=== PATIENT | male | born 1950 | race Caucasian/White ===

== ENCOUNTER 2019-07-17 13:20 | Outpatient (CLI) | payer OTHER, MEDICARE, SELFPAY ==
[2019-07-17 14:04] LABS: Blood Urea Nitrogen 26 mg/dL (9-20); Calcium 9.8 mg/dL (8.4-10.2); Carbon Dioxide 24 mmol/L (22-30); Chloride 94 mmol/L (98-107); Estimated Glomerular Filt Rate > 60; Glucose 200 mg/dL (75-110); Potassium 4.5 mmol/L (3.4-5.0); Sodium 136 mmol/L (137-145)
== END 2019-07-17 13:21 | disposition home or self-care (01) ==
PROVIDERS: Anesthesiology; PCP Family Medicine; Visit Provider Orthopaedic Surgery
DX: E11.9 Type 2 diabetes mellitus without complications (principal)
CPT/HCPCS: 36415; 80048

== ENCOUNTER 2019-07-21 01:30 | Day surgery (SDC) | payer OTHER, MEDICARE, SELFPAY ==
[2019-07-17 10:05] VITALS: BMI 35.6
[2019-07-21] VITALS (7 sets, daily range): BP systolic 111–131; BP diastolic 76–86; PULSE 80–84; RESP 10–20; TEMP 36.5–36.6; O2SAT 93–96
--- NOTE | ~2019-07-21 | XR_ITS ---
EXAMINATION: XR surgery orthopedic DATE: 07/21/2019 10:35 INDICATION: Right foot orthopedic instrumentation removal. TECHNIQUE: 4 fluoroscopic spot images of the right forefoot were obtained during procedure performed by Dr. Hylton. Radiologist was not present for the imaging or procedure. The amount of fluoroscopy t janessa used during this procedure was 0.6 minutes. COMPARISON: Right foot radiographs dated 07/15/2019 FINDINGS: First metatarsophalangeal arthrodesis with unchanged dorsal plate-screw and crossed cannulated compre ssion screw fixation. Interval revision of the prior failed second proximal interphalangeal joint art hrodesis with removal of the previous fixation screw and placement of a new threaded fixation device placed over an axially directed K wire which extends from the tuft of the distal phalanx across the l ength of the second toe to the head of the second metatarsal. There is a second K wire extending from the tuft to the medial base of the proximal phalanx. The second proximal interphalangeal joint arthr odesis is now in near-anatomic alignment. Alignment of the great toe remains in unchanged near-anatom ic alignment. No acute fracture. Remaining joint spaces appear relatively preserved. IMPRESSION: 1. Fluoroscopy utilized during revision of a previously failed instrumented second proximal interphal angeal joint arthrodesis. Reviewed, dictated and finalized at location A. RAM SUPPORT ASSISTANT IMPRESSION: 1. Fluoroscopy utilized during revision of a previously failed instrumented sec ond proximal interphalangeal joint arthrodesis.
--- NOTE | 2019-07-21 07:26 | WPDHPUPDATE1 ---
History and Physical Update Update Date/Time: 07/21/19 07:26 History and Physical has been reviewed, including an updated exam of the patient. There are NO changes in the patient's condition. Risks, benefits, and alternatives have been discussed and questions answered. Patient agrees to proceed with procedure.
[2019-07-21] MEDS: LACTATED RINGERS 1,000 ML 30 ML IV CONT (07:51)
[2019-07-21] MEDS: IBUPROFEN IV 800 MG/200 ML 800 MG/200 ML BAG 400 MG IVPB (08:15)
[2019-07-21 08:23] LABS: Glucose Point of Care 146 (65-105)
--- NOTE | 2019-07-21 08:27 | WPDANESEPPF ---
Anes - Initial Pre Proc Eval Procedure: Operation Date: 07/21/19 09:30 Proposed Procedures p Right Foot Second Proximal Interphalangeal Arthrodesis - Vic Hylton MD s Removal Of Hardware Right Foot Second Toe - Vic Hylton MD Date/Time: 07/21/19 08:27 Surgeon: Vic Hylton MD Pre Op Diagnosis: Right Second Toe Nonunion, Hardware Failure Patient Data Age: 68 Gender: M Height: 1.96 m Weight: 136.1 kg Allergies Allergy/AdvReac Type Severity Reaction Status Date / Time No Known Allergies Allergy Verified 07/17/19 09:40 Home Medications Medication Instructions Recorded Confirmed Type clindamycin phosphate 1 % lotion 1 applic TOPICAL DAILY #60 ml 04/16/19 07/17/19 Rx empagliflozin 25 mg tablet 25 mg PO DAILY 04/22/19 07/17/19 History metformin 500 mg tablet 1,000 mg PO BID 04/22/19 07/17/19 History trazodone 100 mg tablet 100 mg PO HS 04/22/19 07/17/19 History aspirin 81 mg tablet,delayed 81 mg PO DAILY 05/14/19 07/17/19 History release cholecalciferol (vitamin D3) 125 5,000 unit PO DAILY 05/14/19 07/17/19 History mcg (5,000 unit) tablet clotrimazole 1 % topical cream 1 applic TOPICAL Q12H #14 gm 05/14/19 07/17/19 Rx lisinopril 10 1 tablet PO BID 05/14/19 07/17/19 History mg-hydrochlorothiazide 12.5 mg tablet magnesium 200 mg tablet 200 mg PO DAILY 05/14/19 07/17/19 History potassium 99 mg tablet mg PO 05/14/19 07/15/19 History tamsulosin 0.4 mg capsule 0.4 mg PO DAILY 05/14/19 07/17/19 History teriparatide 20 mcg/dose (600 20 mcg SUB-Q DAILY 05/14/19 07/17/19 History mcg/2.4 mL) subcutaneous pen injector testosterone 20.25 mg/1.25 gram 2 pump TOPICAL DAILY 05/14/19 07/17/19 History (1.62 %) transdermal gel pump vitamin B12 1,000 mcg-folic acid lozenge SUBLINGUAL 05/14/19 07/15/19 History 400 mcg sublingual lozenge betamethasone dipropionate 0.05 % 1 applic TOPICAL BID #45 gm 06/05/19 07/17/19 Rx topical ointment apremilast [Otezla] 30 mg PO BID 07/17/19 07/17/19 History Laboratory Tests 07/21/19 08:21 POC Capillary Glucose 146 mg/dl H mg/dl (65-105) Patient hx anesthesia problems: none Family hx anesthesia problems: none PMFSH Past Medical History Medical History (Updated 07/15/19 @ 15:30 by Vic Hylton MD) Diabetes DVT (deep venous thrombosis) Epidermoid cyst of skin (2007) Failed hardware HTN (hypertension) Nonunion of arthrodesis Obesity Surgical History Surgical History H/O cataract extraction Hx of tonsillectomy (1961) S/P lumbar spinal arthrodesis (2009) S/P orthopedic surgery, follow-up exam Social History Social History Smoking status: Former smoker Smoking end date: 06/11/77 Alcohol intake: current Substance use: unknown Gender identity (if verbalized by the patient): Male Spiritual care concerns: No Anes - Eval Final PreProcedure Day of Procedure 07/21/19 08:27 Patient weight: obese Heart: regular rate and rhythm Lungs: clear to auscultation and normal air movement Airway: Mallampati scale class II Neurological: alert and oriented Last oral intake: >/= 8 hours ASA classification: III Emergent: no Anesthetic plan: proceed Anesthesia type and monitoring: general LMA and standard monitoring Informed Consent: The patient's anesthetic plan and its attendant risks and benefits were discussed with the patient/family/POA. Questions were solicited and answers provided to the satisfaction of the patient/family/POA.
--- NOTE | 2019-07-21 08:40 | SUR.PREOP ---
PT KNOWLEDGEABLE RE: CRUTCH AND IT USE RE: RECENT FOOT/ANKLE SURGERY AND TEACHING DONE HERE PER PT.
[2019-07-21] MEDS: ceFAZolin 3 GM/D5W 100 ML 100 ML IVPB (09:35)
[2019-07-21 10:47] LABS: Glucose Point of Care 164 (65-105)
--- NOTE | 2019-07-21 10:55 | P.OP_ITS ---
Procedure Note - Detailed Date of procedure: 07/21/19 Pre-op diagnosis: Right Second Toe Nonunion, Hardware Failure Post-op diagnosis: same Procedure performed: Right hallux proximal interphalangeal joint revision arthrodesis, removal of hardware Description of procedure: Indications: Patient is a 68-year-old gentleman with diabetes and psoriatic arthritis who underwent right 2nd toe proximal interphalangeal joint arthrodesis for hammertoe correction 2 months ago. Surgery was fixed with implant and K-wires. K-wires were removed at 6 weeks. Patient was noted to have loss of fixation, deformity and nonunion on radiographs. Patient presents now for operative treatment as his toe is in unacceptable alignment, hardware is creating pressure on the skin and as a risk for ulceration. What was done: Patient identified in the preoperative holding. Informed consent given. Operative extremity marked. Patient received intravenous antibiotics. Patient brought to the operating room where underwent general anesthetic by anesthesia team. Positioned supine on operating room table. Time-out performed confirming the patient, site of the surgery and the plan. Right foot prepped and draped in usual sterile surgical fashion using ChloraPrep skin solution. Foot and ankle exsanguinated and a calf tourniquet inflated to 220 mmHg. Previous dorsal longitudinal incision over the 2nd toe proximal interphalangeal joint utilized with 15 blade knife. Hemostasis controlled electrocautery. Extensor capsulotomy performed in line with skin incision and the soft tissue elevated off the medial and lateral aspect of the interphalangeal joint arthrodesis. Nonunion noted with instability of the arthrodesis site. Callus and soft tissue from the arthrodesis site removed with a rongeur. Previous hammertoe implant identified and removed with a clamp. The proximal phalanx and middle phalanx bone insert prepared with rongeur and curette. Thorough irrigation with antibiotic solution. Interphalangeal joint arthrodesis then secured with the 3.0 mm Arthrex implant. This was inserted into the proximal phalanx 1st followed by the middle phalanx with good compression noted. Supplemental fixation with 0.045 in K-wire done x3. Image intensification confirmed reduction of the arthrodesis and alignment of the internal fixation. Wound thoroughly irrigated with antibiotic solution, soft tissue closed with 3 0 Monocryl interrupted suture and skin repaired with 4 nylon interrupted suture. Due to the chronic deformity the toenail was then removed with a [place] elevator and a clamp. Who tourniquet released in good capillary refill noted in the toe. Sterile dressing applied. Patient awoke from anesthesia, extubated and taken to recovery room in stable condition. All sponge, needle, instrument counts correct in the case. Implants: Arthrex 3.0 mm hammertoe fusion implant, 0.045 in K-wire x3 Anesthesia: GLMA Surgeon: Vic Hylton MD Content Coordinator: 1st bilingual executive assistant Estimated blood loss (mL): 5 Tourniquet time (min): 45 Drains: No Packing: No Pathology: none sent Complications: None Condition: stable Disposition: PACU
--- NOTE | 2019-07-21 11:58 | SUR.PHASEII ---
1155; POST OP SHOE APPLIED
--- NOTE | 2019-07-21 12:08 | SUR.PHASEII ---
1210; SPOKE TO DR BALDWIN REGARDING MODERATE AMOUNT BLEEDING. ORDER TO REINFORCE DRESSING. ICE PACK ON 20MIN, OFF 20 MIN,
--- NOTE | 2019-07-21 12:25 | SUR.PHASEII ---
1220; PT ASKING TO GO HOME. MEETS DISCHARGE CRITERIA
--- NOTE | 2019-07-21 12:35 | SUR.PHASEII ---
1220; DR BALDWIN HERE TO SEE PT.
== END 2019-07-21 12:33 | disposition home or self-care (01) ==
PROVIDERS: PCP Family Medicine; Visit Provider Orthopaedic Surgery
PROC: (CPT 28750; principal; 2019-07-21 09:30)
PROC: (CPT 28285; 2019-07-21 09:30)
DX: M96.0 Pseudarthrosis after fusion or arthrodesis (principal); T84.098A Other mechanical complication of other internal joint prosthesis, initial encounter; Z96.698 Presence of other orthopedic joint implants; L40.59 Other psoriatic arthropathy; E11.9 Type 2 diabetes mellitus without complications; I10 Essential (primary) hypertension; Z79.84 Long term (current) use of oral hypoglycemic drugs; Z86.718 Personal history of other venous thrombosis and embolism; Z87.891 Personal history of nicotine dependence
CPT/HCPCS: 28285; 20680; J0690; J1741; J2250; J2405; J2704; J3010; J7120

== ENCOUNTER 2021-05-10 01:56 | Day surgery (SDC) | payer OTHER, MEDICARE, SELFPAY ==
[2021-04-21 15:15] VITALS: BMI 33.8
--- NOTE | 2021-05-09 13:20 | PM.HPGS ---
History of Present Illness History of Present Illness Consent: Risks, benefits, and alternatives have been discussed and questions answered. Patient agrees to proceed with procedure. Chief complaint: neoplasm screening Narrative: Marino Andrade Jr. is a 70 year old male who was referred for colon cancer screening. His last colonoscopy was 10 years ago Review of Systems Review of Systems: All systems reviewed & are unremarkable except as noted in HPI and below PMFSH Past Medical History Medical History (Updated 05/09/21 @ 13:21 by Shashi Conner MD) Diabetes DVT (deep venous thrombosis) Epidermoid cyst of skin (2007) groin Failed hardware Hallux valgus of right foot Hepatitis C antibody test negative (~10/07/16) HTN (hypertension) Nonunion of arthrodesis Obesity Obesity (BMI 30-39.9) Other hammer toe(s) (acquired), right foot Psoriasis Type 2 diabetes mellitus with chronic kidney disease, without long-term current use of insulin Type 2 diabetes mellitus with diabetic neuropathy, without long-term current use of insulin Ulcer of toe of left foot Surgical History Surgical History H/O cataract extraction History of foot surgery (~03/20/19) left hallux metatarsophalangeal arthrodesis Hx of tonsillectomy (1961) S/P lumbar spinal arthrodesis (2009) Family History Family History Other Diabetes mellitus Hypertension Social History Social History Smoking status: Former smoker Tobacco type: cigarettes Smoking end date: 06/11/77 Alcohol intake: current Substance use: never Living arrangements: with family Gender identity (if verbalized by the patient): Male Spiritual care concerns: No Meds Home Medications and Allergies Home Medications Medication Instructions Recorded Confirmed Type aspirin 81 mg tablet,delayed 81 mg PO DAILY 05/14/19 04/21/21 History release cholecalciferol (vitamin D3) 125 5,000 unit PO DAILY 05/14/19 04/21/21 History mcg (5,000 unit) tablet magnesium 200 mg tablet 200 mg PO DAILY 05/14/19 04/21/21 History potassium 99 mg tablet 99 mg PO 05/14/19 03/09/21 History hydroxyzine HCl 25 mg tablet 25 mg PO BID PRN 02/12/20 04/21/21 History meloxicam 15 mg tablet 15 mg PO DAILY 02/12/20 04/21/21 History clobetasol 0.05 % topical cream 1 applic TOPICAL BID 06/16/20 04/21/21 History ketoconazole 2 % topical cream 1 applic TOPICAL DAILY PRN 06/16/20 04/21/21 History empagliflozin 25 mg tablet 25 mg PO DAILY #90 tablet 10/07/20 04/21/21 Rx metformin 500 mg tablet 1,000 mg PO BID #360 tablet 11/01/20 04/21/21 Rx lisinopril 10 1 tablet PO BID #180 tablet 11/29/20 04/21/21 Rx mg-hydrochlorothiazide 12.5 mg tablet trazodone 100 mg tablet 50 mg PO BID #90 tablet 02/17/21 04/21/21 Rx folic acid 1 mg tablet 1 mg PO DAILY tablet 03/09/21 04/21/21 History risankizumab-rzaa 150 mg/mL 150 mg SUBCUT ONCE 03/09/21 04/21/21 History subcutaneous pen injector semaglutide 1 mg/dose (2 mg/1.5 1 mg SUBCUT WEEKLY #9 ml 03/09/21 04/21/21 Rx mL) subcutaneous pen injector valacyclovir 1 gram tablet 1,000 mg PO DAILY 03/09/21 04/21/21 History betamethasone dipropionate 1 applic TOPICAL BID PRN 04/21/21 04/21/21 History clindamycin phosphate 1 applic TOPICAL DAILY PRN 04/21/21 04/21/21 History tamsulosin 0.4 mg capsule See Rx Instructions .ROUTE 04/21/21 Rx .COMPLEX #90 cap Allergies Allergy/AdvReac Type Severity Reaction Status Date / Time No Known Allergies Allergy Verified 05/10/21 10:40 Exam Const: Nutritional Appearance: obese Resp: Auscultation: clear to auscultation bilaterally Cardio: Rate: regular rate Assessment and Plan Assessment and plan (1) Colon cancer screening: Code(s): Z12.11 - Encounter for screening for malignant neoplasm of colon Status: Acute Assessment and P
[2021-05-10 10:11] VITALS: BP 120/75; PULSE 94; RESP 18; TEMP 36.1; O2SAT 95; BMI 33.4
[2021-05-10 10:27] LABS: Glucose Point of Care 106 mg/dl (65-105)
[2021-05-10 10:27] LABS: Glucose Point of Care 97 mg/dl (65-105)
[2021-05-10] MEDS: LACTATED RINGERS 1,000 ML 150 ML IV CONT (10:27)
--- NOTE | 2021-05-10 10:28 | SUR.PREOP ---
BLOOD SUGAR CHECKED AT 1025 RESULTS WERE 106 IN RIGHT FINGER, RECHECKED BLOOD SUGAR IN LEFT FINGER RESULTS WERE 97. PATIENT STATES HE TOOK HIS METFORMIN LAST EVENING. HE IS FEELING OK NO COMPLAINTS OF DIZZINESS OR LIGHT HEADEDNESS. SKIN WARM AND DRY. RELAYED INFORMATION TO DR HARRISON NO ORDERS RECEIVED AT THIS TIME. RELAYED INFORMATION TO PATIENT AFTER TALKING WITH DR. HARRISON.
--- NOTE | 2021-05-10 10:47 | WPDANESEPPF ---
Anes - Initial Pre Proc Eval Procedure: Operation Date: 05/10/21 11:15 Proposed Procedures p Screening Colonoscopy - Shashi Conner MD Date/Time: 05/10/21 10:47 Surgeon: Shashi Conner MD Pre Op Diagnosis: neoplasm screening Patient Data Age: 70 Gender: M Height: 1.96 m Weight: 127.9 kg Last Vital Signs Temp 96.9 F L 05/10/21 10:11 Pulse 94 05/10/21 10:11 Resp 18 05/10/21 10:11 BP 120/75 05/10/21 10:11 Pulse Ox 95 05/10/21 10:11 Allergies Allergy/AdvReac Type Severity Reaction Status Date / Time No Known Allergies Allergy Verified 05/10/21 10:40 Home Medications Medication Instructions Recorded Confirmed Type aspirin 81 mg tablet,delayed 81 mg PO DAILY 05/14/19 04/21/21 History release cholecalciferol (vitamin D3) 125 5,000 unit PO DAILY 05/14/19 04/21/21 History mcg (5,000 unit) tablet magnesium 200 mg tablet 200 mg PO DAILY 05/14/19 04/21/21 History potassium 99 mg tablet 99 mg PO 05/14/19 03/09/21 History hydroxyzine HCl 25 mg tablet 25 mg PO BID PRN 02/12/20 04/21/21 History meloxicam 15 mg tablet 15 mg PO DAILY 02/12/20 04/21/21 History clobetasol 0.05 % topical cream 1 applic TOPICAL BID 06/16/20 04/21/21 History ketoconazole 2 % topical cream 1 applic TOPICAL DAILY PRN 06/16/20 04/21/21 History empagliflozin 25 mg tablet 25 mg PO DAILY #90 tablet 10/07/20 04/21/21 Rx metformin 500 mg tablet 1,000 mg PO BID #360 tablet 11/01/20 04/21/21 Rx lisinopril 10 1 tablet PO BID #180 tablet 11/29/20 04/21/21 Rx mg-hydrochlorothiazide 12.5 mg tablet trazodone 100 mg tablet 50 mg PO BID #90 tablet 02/17/21 04/21/21 Rx folic acid 1 mg tablet 1 mg PO DAILY tablet 03/09/21 04/21/21 History risankizumab-rzaa 150 mg/mL 150 mg SUBCUT ONCE 03/09/21 04/21/21 History subcutaneous pen injector semaglutide 1 mg/dose (2 mg/1.5 1 mg SUBCUT WEEKLY #9 ml 03/09/21 04/21/21 Rx mL) subcutaneous pen injector valacyclovir 1 gram tablet 1,000 mg PO DAILY 03/09/21 04/21/21 History betamethasone dipropionate 1 applic TOPICAL BID PRN 04/21/21 04/21/21 History clindamycin phosphate 1 applic TOPICAL DAILY PRN 04/21/21 04/21/21 History tamsulosin 0.4 mg capsule See Rx Instructions .ROUTE 04/21/21 Rx .COMPLEX #90 cap Laboratory Tests 05/10/21 05/10/21 10:22 10:24 POC Capillary Glucose 106 mg/dl H mg/dl 97 mg/dl mg/dl (65-105) (65-105) Patient hx anesthesia problems: none Family hx anesthesia problems: none Results Review: All pre-operative results and documents have been reviewed as part of the pre-operative evaluation. [facility] Past Medical History Medical History (Updated 05/09/21 @ 13:21 by Shashi Conner MD) Diabetes DVT (deep venous thrombosis) Epidermoid cyst of skin (2007) groin Failed hardware Hallux valgus of right foot Hepatitis C antibody test negative (~10/07/16) HTN (hypertension) Nonunion of arthrodesis Obesity Obesity (BMI 30-39.9) Other hammer toe(s) (acquired), right foot Psoriasis Type 2 diabetes mellitus with chronic kidney disease, without long-term current use of insulin Type 2 diabetes mellitus with diabetic neuropathy, without long-term current use of insulin Ulcer of toe of left foot Surgical History Surgical History H/O cataract extraction History of foot surgery (~03/20/19) left hallux metatarsophalangeal arthrodesis Hx of tonsillectomy (1961) S/P lumbar spinal arthrodesis (2009) Family History Family History Other Diabetes mellitus Hypertension Social History Social History Smoking status: Former smoker Tobacco type: cigarettes Smoking end date: 06/11/77 Alcohol intake: current Substance use: never Living arrangements: with family Gender identity (if verbalized by the patient): Male Spiritual care concerns: No Anes - Eval
[2021-05-10 11:41] VITALS: BP 89/54; PULSE 90; RESP 17; O2SAT 94
[2021-05-10 11:51] VITALS: BP 94/60; PULSE 88; RESP 17; O2SAT 95
[2021-05-10 12:01] VITALS: BP 107/67; PULSE 84; RESP 17; O2SAT 94
== END 2021-05-10 12:30 | disposition home or self-care (01) ==
PROVIDERS: PCP Family Medicine; Visit Provider Internal Medicine Gastroenterology
PROC: 0DJD8ZZ Inspection of Lower Intestinal Tract, Via Natural or Artificial Opening Endoscopic (ICD-10-PCS; CPT 45378; principal; 2021-05-10 11:15)
DX: Z12.11 Encounter for screening for malignant neoplasm of colon (principal); D12.2 Benign neoplasm of ascending colon; D12.8 Benign neoplasm of rectum; K57.30 Diverticulosis of large intestine without perforation or abscess without bleeding; I12.9 Hypertensive chronic kidney disease with stage 1 through stage 4 chronic kidney disease, or unspecified chronic kidney disease; E11.40 Type 2 diabetes mellitus with diabetic neuropathy, unspecified; E11.22 Type 2 diabetes mellitus with diabetic chronic kidney disease; N18.9 Chronic kidney disease, unspecified; L40.9 Psoriasis, unspecified; Z79.82 Long term (current) use of aspirin; Z79.84 Long term (current) use of oral hypoglycemic drugs; Z79.899 Other long term (current) drug therapy; E66.9 Obesity, unspecified; Z68.33 Body mass index [BMI] 33.0-33.9, adult; Z86.718 Personal history of other venous thrombosis and embolism; Z87.891 Personal history of nicotine dependence
CPT/HCPCS: 45380; 45385; 45381; 82948; 88305; J2704; J7120

== ENCOUNTER → 2021-05-25 11:15 | Outpatient (CLI) | payer OTHER, MEDICARE, SELFPAY ==
--- NOTE | ~2021-05-25 | DEXA_ITS ---
Bone Density Report Name: KOBE GAUTHIER Age: 70 Sex: Male Ethnicity: White Date of : 1950 Indication: height loss; prior fracture; Referring Provider: MIGUEL OWENS Study: Bone densitometry was performed. Exam Date: May 25, 2021 Accession number: [id number] Bone Density: Region BMD T-score Z-score Classification AP Spine (L1, L2, L3) 0.901 -1.5 -0.7 Osteopenia Femoral Neck (Left) 0.680 -1.8 -0.7 Osteopenia Total Hip (Left) 0.886 -1.0 -0.4 Normal Femoral Neck (Right) 0.708 -1.6 -0.5 Osteopenia Total Hip (Right) 0.905 -0.8 -0.2 Normal Total Hip Mean 0.895 -0.9 -0.3 Normal World Health Organization criteria for BMD impression classify patients as: Normal (T-score at or above -1.0), Osteopenia (T-score between -1.0 and -2.5), or Osteoporosis (T-score at or below -2.5). 10-year Fracture Risk: FRAX not reported because: Prior hip or vertebral fracture Clinical Information Provided by Patient: Have had a previous hip or vertebral fracture Has had a low trauma fracture Has used the following medications: Vitamin D, Calcium, MTV Patient maximum height was 76.75 No regular weight bearing exercise Does not regularly consume dairy products Drinks caffeinated beverages Impression: The patient has low bone mass, based on the Left Femoral Neck T-score. The patient has risk factors, including: previous fracture. Discussion: INCREASED RISK OF FRACTURE DUE TO HISTORY OF LOW TRAUMA FRACTURE. The patient's previous fracture puts the patient at high risk of a future fracture. In untreated patients, the risk of osteoporotic fracture increases approximately two-fold for each 1.0 SD decrease in T-score. Low bone density is not the only risk factor for fracture; also consider factors such as patient's age, frailty or poor health, risk of falling, risk of injury, previous osteoporotic fracture, family history of osteoporosis, cigarette smoking, low body weight, etc. Not everyone with a low trauma fracture has osteoporosis; osteomalacia and other metabolic bone disorders should also be considered. Patients who have osteoporosis should be evaluated for specific diseases and conditions (secondary causes) that may cause or contribute to bone loss and fracture risk. National Osteoporosis Foundation (NOF) recommends pharmacologic intervention for patients with a prior low trauma hip or vertebral fracture regardless of BMD T-score. The patient should follow a healthful lifestyle (good nutrition with adequate calcium and vitamin D, and appropriate weight-bearing exercise). Follow-Up: Consider a repeat BMD and Vertebral Fracture Assessment (VFA) exam in 2 years or sooner if medically necessary, to reassess this patient's status. Reported by: LUISITO on 05/25/2021 1:17:00 PM.
--- NOTE | ~2021-05-25 | XR_ITS ---
XR finger 1st LT min 2V 05/25/2021 12:08 Indication: Left first finger pain Procedure: 3 views left first finger Comparison: No prior studies for comparison. Findings: There is moderate osteoarthritis of the first carpometacarpal, MCP and IP joints. No fractu re or traumatic malalignment. Osteopenia. No focal soft tissue abnormality. There is mild degenerativ e change of the triscaphe joint. No foreign bodies. 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 Reviewed, dictated and finalized at location A. 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
== END ==
PROVIDERS: PCP Family Medicine; Visit Provider Physician Assistant
DX: M18.12 Unilateral primary osteoarthritis of first carpometacarpal joint, left hand (principal); M19.042 Primary osteoarthritis, left hand; M85.852 Other specified disorders of bone density and structure, left thigh; M85.851 Other specified disorders of bone density and structure, right thigh
CPT/HCPCS: 73140; 77080

== ENCOUNTER 2023-04-12 12:56 | Outpatient (CLI) | payer OTHER, MEDICARE, SELFPAY ==
--- NOTE | ~2023-04-12 | MR_ITS ---
EXAMINATION: MR lumbar spine wo con DATE: 04/12/2023 13:34 INDICATION: Chronic low back pain. TECHNIQUE: Magnetic resonance imaging (MRI) of the lumbar spine was performed without intravenous con trast. COMPARISON: Lumbar spine MRI 12/28/2014 FINDINGS: There is 14 degrees levoscoliosis of lumbar spine. There is mild chronic anterior wedging o f T12-L3 vertebral bodies. There is 8 mm anterolisthesis of L5 on S1. There are changes of anterior a nd posterior fusion procedures at L5-S1 with interbody devices and pedicle screws. There is 3 mm retr olisthesis of L1 on L2 and L2 on L3. There is mildly decreased disc height at L1-L2, moderately decre ased disc height at L2-L3, and mildly decreased disc height at L4-L5. The distal spinal cord signal i ntensity is normal. The conus medullaris is at L1. The following disc levels are specifically discuss ed: L1-L2: The disc is bulging. There is mild bilateral facet joint osteoarthritis. There is mild bilater al neural foraminal stenosis. There is mild central canal stenosis. L2-L3: The disc is bulging. There is severe bilateral facet joint osteoarthritis. There is moderate r ight and mild left neural foraminal stenosis. There is mild central canal stenosis. L3-L4: The disc is bulging. There is severe bilateral facet joint osteoarthritis. There is moderate b ilateral neural foraminal stenosis. There is mild central canal stenosis. L4-L5: The disc is bulging and has an annular fissure. There is severe bilateral facet joint osteoart hritis. There is moderate bilateral neural foraminal stenosis. There is mild central canal stenosis. L5-S1: There is severe bilateral facet joint hypertrophy. There is moderate right and mild left neura l foraminal stenosis. There is no central canal stenosis. IMPRESSION: 1. Moderate lumbar spondylosis, stable from 12/28/2014. 2. Anterior and posterior fusion procedures at L5-S1. 3. Lumbar levoscoliosis. Reviewed, dictated and finalized at location E.
== END 2023-04-12 12:57 ==
PROVIDERS: PCP Family Medicine; Visit Provider Nurse Practitioner Family
DX: M47.816 Spondylosis without myelopathy or radiculopathy, lumbar region (principal); M43.16 Spondylolisthesis, lumbar region; G89.4 Chronic pain syndrome; M41.86 Other forms of scoliosis, lumbar region; Z98.1 Arthrodesis status
CPT/HCPCS: 72148

== ENCOUNTER 2023-05-30 00:33 | Day surgery (SDC) | payer OTHER, MEDICARE, SELFPAY ==
--- NOTE | 2023-05-25 10:34 | PC.NURSE ---
Report to the Outpatient Waiting Room, entrance under the green pavilion located off [facility], at time __0600 on date __05/30/23 . Planned Procedure Time: __0730 . Time changes happen often and if your time is changed the preop area will call you the afternoon before. - You and your visitor will be asked to self-screen and do not enter if you have any COVID symptoms. - A mask is optional within the hospital at this time. Patients may have clear liquids (water, carbonated beverages, clear teas, apple juice) until 3 hours prior to surgery(4:30 AM ) with a maximum of 20 ounces. - No food from midnight until time of surgery - Infants may have breast milk until 4 hours before surgery, infant formula 6 hours prior to surgery. - Children will be allowed to drink immediately following surgery. If applicable, please bring a bottle or sippy cup to assist with drinking. Juice, water, soda, and popsicles are readily available. For infants on formula, please bring formula the day of surgery. Pacifiers are allowed. Take the following medications with a SIP of water the morning of surgery: ___NONE DO NOT STOP ANY OF YOUR OTHER PRESCRIPTION MEDICATIONS PRIOR TO SURGERY ?EXCEPT THE FOLLOWING Medications to discontinue per physician ___ALL VITAMINS AND SUPPLEMENTS 3 DAYS PRE OP.LAST DOSE 05/26/23 Please no make-up, nail upper sorbian, hairspray, perfume, deodorant, or body powder the day of surgery. No jewelry (including any body piercings) or valuables the day of surgery, leave them at home. Please take a shower or bath the night before, or the morning of, surgery with an antibacterial soap. Wear comfortable, loose fitting clothing. Children are encouraged to wear pajamas. - Jewelry must be removed prior to entering the operating room. Rings and piercings that are not removed may be cut off. - The hospital will not accept responsibility for valuables. - Please leave all valuables, including medications, at home the day of surgery. If you are going home after surgery, a licensed pile driver operator barge mounted must drive you home. - NO public transportation without another adult if you receive anesthesia. - We recommend that an adult stay with you for 24 hours following discharge. - We also recommend that you do not drive, make important decision, drink alcoholic beverages, or take any drugs that were not prescribed by your health care provider for at least 24 hours after your discharge time. For Pediatric surgeries, we recommend two adults accompany the child home. Follow any additional instructions given to you from your surgeon. If you or anyone in your household have experienced Covid symptoms in the past week, please notify your surgeon or the nurse liaison at the phone number below for possible testing. Telephone instructions given to __PATIENT and asked if any additional questions and then verbalized understanding. Patient advised to call surgeon office or pre surgery nurse liaison [phone] if any additional questions.
[2023-05-25 10:41] VITALS: BMI 31.6
[2023-05-30] MEDS: LACTATED RINGERS 1,000 ML 30 ML IV CONT (06:30)
--- NOTE | 2023-05-30 06:47 | WPDANESEPPF ---
Anes - Initial Pre Proc Eval Procedure: Operation Date: 05/30/23 07:30 Proposed Procedures p Excision of Right Volar Wrist Mass - Douglas Cazares MD Date/Time: 05/30/23 06:47 Surgeon: Douglas Cazares MD Pre Op Diagnosis: right volar wrist mass Patient Data Age: 72 Gender: M Height: 1.96 m Weight: 121.2 kg Allergies Allergy/AdvReac Type Severity Reaction Status Date / Time No Known Allergies Allergy Verified 05/25/23 10:16 Home Medications Medication Instructions Recorded Confirmed Type aspirin 81 mg tablet,delayed 81 mg PO DAILY 05/14/19 05/25/23 History release cholecalciferol (vitamin D3) 125 5,000 unit PO DAILY 05/14/19 05/25/23 History mcg (5,000 unit) tablet magnesium 200 mg tablet 200 mg PO DAILY 05/14/19 05/25/23 History potassium 99 mg tablet 99 mg PO DAILY 05/14/19 05/25/23 History hydroxyzine HCl 25 mg tablet 25 mg PO BID PRN Itching 02/12/20 05/25/23 History clobetasol 0.05 % topical cream 1 applic topical BID psoriasis 06/16/20 05/25/23 History ketoconazole 2 % topical cream 1 applic topical DAILY PRN Rash 06/16/20 05/25/23 History folic acid 1 mg tablet 1 mg PO DAILY 03/09/21 05/25/23 History risankizumab-rzaa 150 mg/mL 150 mg subcut ONCE 03/09/21 05/25/23 History subcutaneous pen injector betamethasone dipropionate 0.05 % 1 applic topical BID PRN Rash 04/21/21 05/25/23 History topical ointment clindamycin phosphate 1 % lotion 1 applic topical DAILY PRN Rash 04/21/21 05/25/23 History hydrocodone 5 mg-acetaminophen 325 1 tablet PO Q6H PRN pain #30 tabs 03/23/22 05/25/23 Rx mg tablet tamsulosin 0.4 mg capsule See Rx Instructions .Route 01/04/23 05/25/23 Rx .COMPLEX #90 caps empagliflozin 25 mg tablet 25 mg PO DAILY #90 tabs 01/18/23 05/25/23 Rx (Jardiance) metformin 500 mg tablet 1,000 mg PO BID #360 tabs 01/30/23 05/25/23 Rx lisinopril 10 1 tablet PO BID #180 tabs 03/15/23 05/25/23 Rx mg-hydrochlorothiazide 12.5 mg tablet semaglutide 2 mg/dose (8 mg/3 mL) 2 mg (0.75 mL) subcut WEEKLY #9 mL 05/10/23 05/25/23 Rx subcutaneous pen injector (Ozempic) trazodone 100 mg tablet 50 mg PO HS 05/25/23 05/25/23 History Patient hx anesthesia problems: none Family hx anesthesia problems: none Results Review: All pre-operative results and documents have been reviewed as part of the pre-operative evaluation. [facility] Past Medical History Medical History Colon polyp Diabetes DVT (deep venous thrombosis) Epidermoid cyst of skin (2007) groin Failed hardware Hallux valgus of right foot Hepatitis C antibody test negative (~10/07/16) HTN (hypertension) Nonunion of arthrodesis Obesity Obesity (BMI 30-39.9) Osteopenia Other hammer toe(s) (acquired), right foot Psoriasis Type 2 diabetes mellitus with chronic kidney disease, without long-term current use of insulin Type 2 diabetes mellitus with diabetic neuropathy, without long-term current use of insulin Ulcer of toe of left foot Surgical History Surgical History H/O cataract extraction History of foot surgery (~03/20/19) left hallux metatarsophalangeal arthrodesis Hx of tonsillectomy (1961) S/P lumbar spinal arthrodesis (2009) Family History Family History Other Diabetes mellitus Hypertension Social History Social History Smoking packs per day: 3 Smoking cigarettes per day: 60.0 Years smoked: 8 Smoking pack-years: 24.00 Smoking status: Former smoker Tobacco type: cigarettes Smoking end date: 06/11/77 Alcohol intake: current Substance use: never Lack of Transportation: No Lack of Food: Never True Current Housing: I Have Housing Concerned About Future Housing: No Difficulty Paying Gas/Electric Bills: No Difficulty Paying for Meds: No Currently
[2023-05-30 07:00] VITALS: BP 123/74; PULSE 82; RESP 18; TEMP 37.2; O2SAT 100
--- NOTE | 2023-05-30 07:17 | WPDHPUPDATE1 ---
History and Physical Update Update Date/Time: 05/30/23 07:17 History and Physical has been reviewed, including an updated exam of the patient. There are NO changes in the patient's condition. Risks, benefits, and alternatives have been discussed and questions answered. Patient agrees to proceed with procedure.
[2023-05-30 07:22] LABS: Glucose Point of Care 125 mg/dl (65-105)
[2023-05-30] MEDS: LIDO 1%/EPINEPHRINE 1:100,000 50 ML VIAL INFILTRATE (07:44)
[2023-05-30 08:40] VITALS: BP 109/69; PULSE 88; RESP 16; O2SAT 94
[2023-05-30 08:49] LABS: Glucose Point of Care 134 mg/dl (65-105)
--- NOTE | 2023-05-30 08:52 | W.PM.PROC2 ---
Procedure Note - Detailed Date of Procedure 05/30/23 Pre-op Diagnosis right volar wrist mass Post-op Diagnosis Other (Chronic right volar wrist ganglion cyst) Procedure Performed Excision of right volar wrist ganglion cyst Surgeon Douglas Cazares MD Anesthesia MAC Description of Procedure He returns right volar wrist ganglion cyst was marked at the patient's bedside with his consent. This area had been lanced elsewhere and recurred. It is quite firm. He was taken to the operating room placed supine on the operating table. He was given IV sedation. The extremity was prepped and draped in usual fashion. Site was marked for the incision. This area was locally infiltrated with 1% lidocaine with epinephrine. The extremity was exsanguinated with an Janes wrap and the tourniquet inflated to 250 mmHg. Cyst was readily identified. There were many dense adhesions surrounding it. We carefully dissected those confirming they were not significant vascular structures. The dense well cyst was dissected all the way around. Eventually the tourniquet was released to identify the radial artery. It appeared to have not been injured in the previous manipulation. The cyst was carefully dissected free from the artery. Bleeding points were electrocoagulated. Some pressure was held on the site for about 5 minutes. All bleeding was controlled. The wound was closed with interrupted 4-0 Monocryl suture in the dermis.. The usual bandage was applied and the patient was transported from the operating room in stable condition. He is being discharged home with instructions in wound care and follow-up. He has a prescription for hydrocodone 5/325 4. Estimated Blood Loss 6 Drains No Packing No Pathology None sent Complications No immediate complications Condition Stable Disposition Same day
[2023-05-30 09:10] VITALS: BP 104/72; PULSE 81; RESP 16; O2SAT 94
[2023-05-30 09:25] VITALS: BP 97/69; PULSE 77; RESP 16
== END 2023-05-30 09:34 | disposition home or self-care (01) ==
PROVIDERS: PCP Family Medicine; Visit Provider Plastic Surgery
PROC: (CPT 25111; principal; 2023-05-30 07:30)
DX: M67.431 Ganglion, right wrist (principal); M85.80 Other specified disorders of bone density and structure, unspecified site; E11.40 Type 2 diabetes mellitus with diabetic neuropathy, unspecified; E11.22 Type 2 diabetes mellitus with diabetic chronic kidney disease; I12.9 Hypertensive chronic kidney disease with stage 1 through stage 4 chronic kidney disease, or unspecified chronic kidney disease; N18.9 Chronic kidney disease, unspecified; E66.9 Obesity, unspecified; Z68.32 Body mass index [BMI] 32.0-32.9, adult; Z79.84 Long term (current) use of oral hypoglycemic drugs; Z79.82 Long term (current) use of aspirin; Z79.891 Long term (current) use of opiate analgesic; Z79.85 Long-term (current) use of injectable non-insulin antidiabetic drugs; Z86.718 Personal history of other venous thrombosis and embolism; Z87.891 Personal history of nicotine dependence; Z86.010 Personal history of colon polyps; Z98.890 Other specified postprocedural states; Z98.1 Arthrodesis status
CPT/HCPCS: 25111; 82948; A9270; J2250; J2704; J3010; J7120

== ENCOUNTER 2024-12-18 14:46 | Outpatient (CLI) | payer MEDICARE, SELFPAY ==
--- NOTE | ~2024-12-18 | XR_ITS ---
EXAM/ PROCEDURE: XR shoulder LT min 2V - 12/18/2024 14:53 CDT HISTORY: 74 years old Male with Shoulder pain COMPARISON: None available TECHNIQUE: Three view(s) FINDINGS/ IMPRESSION: There are no fractures or dislocations.Joint space narrowing, subchondral sclerosis, subchondral cyst formation and osteophyte formation, compatible with mild osteoarthritis. Reviewed, dictated and finalized at location A.
--- NOTE | ~2024-12-18 | XR_ITS ---
Lumbosacral Spine: AP, oblique, and lateral views Clinical History: Pain Findings: There is posterior and interbody fusion from L5 to S1. There is probable anterolisthesis of L5 over S1 measuring approximately 10 mm. There is 4 mm retrolisthesis of L2 over L3. There is 5 mm retrolisthesis of L1 over L2. There are mild chronic compression deformity of L1 and L2. There are mo derate degenerative disc changes throughout the lumbar spine. There is advanced facet arthropathy thr oughout the spine. The sacroiliac joints are normally outlined. Impression: Advanced spondylosis, as detailed above. 4 mm retrolisthesis of L2 over L3. 5 mm retrolisthesis of L1 over L2. 10 mm anterolisthesis of L5 over S1. Posterior fusion from L5 to S1. Chronic compression fracture deformities of L1 and L2. Reviewed, dictated and finalized at [facility]. Impression: Advanced spondylosis, as detailed above. 4 mm retrolisthesis of L2 over L3. 5 mm retrolisthesis of L1 over L2. 10 mm anterolisthesis of L5 over S1. Posterior fusion from L5 to S1. Chronic compression fracture deformities of L1 and L2.
--- NOTE | ~2024-12-18 | XR_ITS ---
EXAM/ PROCEDURE: XR shoulder RT min 2V - 12/18/2024 14:53 CDT HISTORY: 74 years old Male with Shoulder pain COMPARISON: None available TECHNIQUE: Four view(s) FINDINGS/ IMPRESSION: There are no fractures or dislocations.Joint space narrowing, subchondral sclerosis, subchondral cyst formation and osteophyte formation, compatible with mild osteoarthritis. Reviewed, dictated and finalized at location A.
== END 2024-12-18 14:47 | disposition home or self-care (01) ==
LOC: MICIMG 14:48
PROVIDERS: PCP Family Medicine; Visit Provider Physician Assistant
DX: M47.816 Spondylosis without myelopathy or radiculopathy, lumbar region (principal); M43.16 Spondylolisthesis, lumbar region; M43.12 Spondylolisthesis, cervical region; M96.1 Postlaminectomy syndrome, not elsewhere classified; Z98.1 Arthrodesis status; M48.54XA Collapsed vertebra, not elsewhere classified, thoracic region, initial encounter for fracture
CPT/HCPCS: 72110; 73030

== ENCOUNTER 2025-01-07 09:39 | Outpatient (CLI) | payer MEDICARE, SELFPAY ==
--- NOTE | ~2025-01-07 | MR_ITS ---
MRI of the lumbar spine Clinical History: Radiculopathy Technique: Axial T2-weighted images, and sagittal T1-weighted, T2-weighted, and STIR images were acqu ired. COMPARISON: 04/12/2023 Findings: Stable posterior fusion from L5 to S1 with bilateral rods and transpedicular screws present . Stable chronic mild compression fracture deformities of L1 and L2. No acute fracture. Stable osseou s alignment from prior exam. No suspicious bone marrow signal abnormality. At L1-L2, there is minimal disc bulge with mild to moderate facet arthropathy. No central canal steno sis or definite neural foraminal narrowing. At L2-L3, there is minimal disc bulge with moderate to advanced facet arthropathy. No central canal s tenosis or definite neural foraminal narrowing. At L3-L4, there is mild disc bulge with moderate to advanced facet arthropathy. No central canal sten osis. There is mild right neural foraminal narrowing. Left neural foramen preserved. At L4-L5, there is disc bulge with severe facet arthropathy. There is minimal central canal stenosis. There is moderate to advanced right neural foraminal narrowing, and moderate left neural foraminal n arrowing. At L5-S1, there is disc fusion device with posterior decompression. No spinal canal stenosis. There i s probable moderate bilateral neural foraminal narrowing. Paravertebral soft tissues are unremarkable, aside from expected postoperative change. Impression: Stable posterior fusion and associated postoperative changes from L5 to S1. Stable mild chronic compression deformities of L1 and L2. Moderate degenerative spondylosis, as above. Reviewed, dictated and finalized at [facility]. Impression: Stable posterior fusion and associated postoperative changes from L5 to S1. Stable mild chronic compression deformities of L1 and L2. Moderate degenerative spondylosis, as above.
== END 2025-01-07 09:40 | disposition home or self-care (01) ==
LOC: MICIMG 09:39
PROVIDERS: PCP Family Medicine; Visit Provider Physician Assistant
DX: M96.1 Postlaminectomy syndrome, not elsewhere classified (principal); Z98.1 Arthrodesis status; M47.26 Other spondylosis with radiculopathy, lumbar region
CPT/HCPCS: 72148